=== PATIENT | female | born 1975 | race Caucasian/White ===

== ENCOUNTER 2017-02-01 08:10 | Emergency (ER) | payer OTHER ==
[2017-02-01 08:27] VITALS: BP 116/70
--- NOTE | 2017-02-01 09:03 | UC ---
Throat Pain/Nasal Shane HPI - HPI Summary HPI Summary: Day 7 of sinus congestion and frontal sinus pain Day 2 of sore throat--- concerned she may have been exposed to strep - History of Current Complaint Chief Complaint: UCGeneralIllness Stated Complaint: SORE THROAT Time Seen by Provider: 02/01/17 08:57 Hx Obtained From: Patient Hx Last Menstrual Period: Mirena IUD ?: No Onset/Duration: Sudden Onset, Lasting Days - 1 Severity: Mild Pain Intensity: 4 Pain Scale Used: 0-10 Numeric Cough: None Associated Signs & Symptoms: Positive: Negative - Allergies/Home Medications Allergies/Adverse Reactions: Allergies Allergy/AdvReac Type Severity Reaction Status Date / Time Diphenhydramine Allergy Intermediate restless Verified 02/01/17 08:23 [From Benadryl] legs Lactose Intolerance (GI) AdvReac Nausea And Verified 02/01/17 08:23 Vomiting seasonal Allergy Congestion Uncoded 02/01/17 08:23 Home Medications: Home Medications Cholecalciferol TAB* [Vitamin D TAB*] 2,000 units PO DAILY 02/01/17 [History Confirmed 02/01/17] PMH/Surg Hx/FS Hx/Imm Hx Previously Healthy: No Endocrine History: Other - anemia Other Endocrine History: anemia Psychological History: Depression - Surgical History Surgical History: Yes Surgery Procedure, Year, and Place: bariatric, c section, ear tubes, sinus - Family History Known Family History: Positive: None - Social History Occupation: Employed Full-time Lives: With Family Alcohol Use: Occasionally Substance Use Type: None Smoking Status (MU): Never Smoked Tobacco - Immunization History Most Recent Influenza Vaccination: Not the Season Hx Tetanus, Diphtheria Vaccination: No Vaccination Up to Date: No Review of Systems Constitutional: Chills, Fatigue Skin: Negative Eyes: Negative ENT: Sore Throat, Nasal Discharge, Sinus Congestion, Sinus Pain/Tenderness Respiratory: Negative Cardiovascular: Negative Gastrointestinal: Negative Genitourinary: Negative Motor: Negative Neurovascular: Negative Musculoskeletal: Negative Neurological: Negative Psychological: Negative Is Patient Immunocompromised?: No All Other Systems Reviewed And Are Negative: Yes Physical Exam Triage Information Reviewed: Yes Appearance: Well-Appearing, No Pain Distress, Well-Nourished Vital Signs: Initial Vital Signs Temp 98.1 F 02/01/17 08:22 Pulse 72 02/01/17 08:22 Resp 16 02/01/17 08:22 BP 116/70 02/01/17 08:22 Pulse Ox 100 02/01/17 08:22 Vital Signs Reviewed: Yes Eye Exam: Normal Eyes: Positive: Conjunctiva Clear ENT Exam: Normal ENT: Positive: Normal ENT inspection, Hearing grossly normal, Pharynx normal, TMs normal. Negative: Nasal congestion, Nasal drainage, Tonsillar swelling, Tonsillar exudate, Trismus, Muffled/hoarse voice Dental Exam: Normal Neck exam: Normal Neck: Positive: Supple, Nontender, No Lymphadenopathy Respiratory Exam: Normal Respiratory: Positive: Chest non-tender, Lungs clear, Normal breath sounds, No respiratory distress, No accessory muscle use Cardiovascular Exam: Normal Cardiovascular: Positive: RRR, No Murmur, Pulses Normal, Brisk Capillary Refill Musculoskeletal Exam: Normal Musculoskeletal: Positive: Strength Intact, ROM Intact Neurological Exam: Normal Neurological: Positive: Alert, Muscle Tone Normal Psychological Exam: Normal Skin Exam: Normal Diagnostics - Laboratory Diagnostic Studies Completed/Ordered: RST (-) Throat Pain/Nasal Course/Dx - Course Assessment/Plan: Try sudafed and flonase may add antibiodic if not improving in next 3-4 days follow with pcp - Differential Dx/Diagnosis Differential Diagnosis/HQI/PQRI: Otitis Media, Pharyngitis, Sinusitis, URI Provider Diagnoses: Acute rhinosinuisitis Discharge - Discharge Plan Condition: Stable Disposition: HOME Prescriptions: Amoxicillin/Clavulanate TAB* [Augmentin TAB 875*] 875 mg PO BID #20 tab Fluticasone NASAL SPRAY 50MCG* [Flonase NASAL SPRAY 50MCG*] 2 spray BOTH NARES DAILY #1 btl Patient Education Materials: Pseudoephedrine (By mouth), Sinusitis (ED), Nasal Rinse (ED), How to Use Nasal [place] (ED) Referrals: Becky Mullins MD [Primary Care Provider] - If Needed
== END 2017-02-01 09:16 | disposition home or self-care (01) ==
LOC: UCCORT 08:10
DX: J01.90 Acute sinusitis, unspecified (principal); F32.9 Major depressive disorder, single episode, unspecified
CPT/HCPCS: 87651; 99212; G0463

== ENCOUNTER 2020-04-03 11:05 | Inpatient (IN) ==
[2020-04-03] MEDS ORDERED: NS 0.9% 1000 ml BAG 1,000 ML IV ONE ×2 (11:43→16:08)
[2020-04-03 12:52] LABS: ABS Eosinophils 0.3 10^3/ul (0-0.6); ABS Lymphocytes 1.4 10^3/ul (1.0-4.8); ABS Monocytes 0.7 10^3/ul (0-0.8); ABS Neutrophils 6.3 10^3/ul (1.5-7.7); Eosinophil % 3.9 %; Hematocrit 38 % (35-47); Mean Corpuscular HGB Conc 34 g/dL (31-36); Mean Corpuscular Hemoglobin 31 pg (27-31); Mean Corpuscular Volume 92 fL (80-97); Mean Platelet Volume 7.9 fL (7.4-10.4); Platelet Count 307 10^3/uL (150-450); Red Blood Count 4.17 10^6 /uL (3.70-4.87); Red Cell Distribution Width 14 % (10-15); White Blood Count 8.8 10^3/uL (3.5-10.8)
[2020-04-03 13:12] LABS: Albumin 4.4 g/dL (3.2-5.2); Albumin/Globulin Ratio 1.2 (1-3); C Reactive Protein 25.92 mg/L (<8.01); Calcium 9.5 mg/dL (8.6-10.3); EGFR African American 101.1 (>60); EGFR Non-African American 83.6 (>60); Globulin 3.7 g/dL (2-4); Potassium 3.9 mmol/L (3.5-5.0); Total Bilirubin 0.7 mg/dL (0.2-1.0); Total Protein 8.1 g/dL (6.4-8.9)
[2020-04-03] MEDS ORDERED: Lidocaine 1% MPF 5 ML VIAL INJ ONE ×2 (13:38→14:18)
[2020-04-03 13:57] LABS: Erythrocyte Sed Rate 51 mm/Hr (0-19)
[2020-04-03] MEDS ORDERED: Morphine 4 MG/ML VIAL (1 ml) IV ONE ×2 (14:17→15:07)
[2020-04-03] MEDS ORDERED: ceFAZolin 1 GM ADVAN 1 GM in NS 0.9% 50 ML 50 ML IVPB ONE (14:17)
[2020-04-03] MEDS ORDERED: Ondansetron 4 mg VIAL 2 MG/ML 2 ml VIAL IV ONE ×2 (14:17→18:11)
[2020-04-03] MEDS ORDERED: fentaNYL 100 mcg/2 ml 50 MCG/ML VIAL IV SLOW PU ONE ×2 (16:07→17:08)
[2020-04-03] MEDS ORDERED: Midazolam 5 mg/5 ml VIAL 1 mg/ml 5 ml VIAL (5 mg) IV SLOW PU ONE ×2 (16:07→17:07)
[2020-04-03] MEDS ORDERED: fentaNYL 100 mcg/2 ml 50 MCG/ML VIAL ONE (16:47)
[2020-04-03] MEDS ORDERED: Midazolam 5 mg/5 ml VIAL 1 mg/ml 5 ml VIAL (5 mg) ONE (16:52)
[2020-04-03] MEDS ORDERED: NS 0.9% 1000 ml BAG 1,000 ML IV SCH (19:15)
[2020-04-03] MEDS ORDERED: ELETRIPTAN 20 MG PO PRN (19:37)
[2020-04-03] MEDS: oxyCODONE/Acetamin 5/325 mg TAB PO PRN ×2 (19:39→23:58)
[2020-04-03] MEDS: Ondansetron 4 mg VIAL 2 MG/ML 2 ml VIAL IV PRN (21:25)
[2020-04-03] MEDS: Cholecalciferol (VIT D3) 1,000 unit TAB PO SCH (22:24)
[2020-04-03] MEDS: ceFAZolin 1 GM ADVAN 1 GM in NS 0.9% 50 ML 50 ML IVPB SCH (22:24)
[2020-04-04] MEDS: Ondansetron 4 mg VIAL 2 MG/ML 2 ml VIAL IV PRN ×4 (01:35→15:39)
[2020-04-04] MEDS: ceFAZolin 1 GM ADVAN 1 GM in NS 0.9% 50 ML 50 ML IVPB SCH ×3 (05:28→22:20)
[2020-04-04] MEDS: oxyCODONE/Acetamin 5/325 mg TAB PO PRN ×3 (05:29→15:40)
[2020-04-04 06:56] LABS: ABS Eosinophils 0.2 10^3/ul (0-0.6); ABS Lymphocytes 1.1 10^3/ul (1.0-4.8); ABS Monocytes 0.5 10^3/ul (0-0.8); ABS Neutrophils 3.7 10^3/ul (1.5-7.7); Eosinophil % 3.3 %; Hematocrit 31 % (35-47); Hemoglobin 10.6 g/dL (12.0-16.0); Lymphocyte % 19.5 %; Mean Corpuscular HGB Conc 34 g/dL (31-36); Mean Corpuscular Hemoglobin 31 pg (27-31); Mean Corpuscular Volume 93 fL (80-97); Mean Platelet Volume 7.6 fL (7.4-10.4); Platelet Count 243 10^3/uL (150-450); Red Cell Distribution Width 13 % (10-15); White Blood Count 5.4 10^3/uL (3.5-10.8)
[2020-04-04 07:15] LABS: Albumin 3.3 g/dL (3.2-5.2); Albumin/Globulin Ratio 1.2 (1-3); BUN/Creatinine Ratio 14.8 (8-20); C Reactive Protein 22.07 mg/L (<8.01); Calcium 8.3 mg/dL (8.6-10.3); EGFR African American 127.8 (>60); EGFR Non-African American 105.6 (>60); Globulin 2.8 g/dL (2-4); Potassium 4.2 mmol/L (3.5-5.0); Total Bilirubin 0.5 mg/dL (0.2-1.0); Total Protein 6.1 g/dL (6.4-8.9)
[2020-04-04] MEDS: Cholecalciferol (VIT D3) 1,000 unit TAB PO SCH (20:07)
[2020-04-05] MEDS: ceFAZolin 1 GM ADVAN 1 GM in NS 0.9% 50 ML 50 ML IVPB SCH (06:01)
[2020-04-05 07:52] VITALS: BP 104/48
[2020-04-05 08:51] LABS: ABS Basophils 0.1 10^3/ul (0-0.2); ABS Eosinophils 0.2 10^3/ul (0-0.6); ABS Lymphocytes 1.2 10^3/ul (1.0-4.8); ABS Monocytes 0.5 10^3/ul (0-0.8); ABS Neutrophils 4.6 10^3/ul (1.5-7.7); Eosinophil % 3.4 %; Hematocrit 33 % (35-47); Hemoglobin 11.1 g/dL (12.0-16.0); Lymphocyte % 18.1 %; Mean Corpuscular HGB Conc 34 g/dL (31-36); Mean Corpuscular Hemoglobin 31 pg (27-31); Mean Corpuscular Volume 92 fL (80-97); Mean Platelet Volume 7.4 fL (7.4-10.4); Platelet Count 261 10^3/uL (150-450); Red Blood Count 3.57 10^6 /uL (3.70-4.87); Red Cell Distribution Width 13 % (10-15); White Blood Count 6.5 10^3/uL (3.5-10.8)
== END 2020-04-05 11:40 | disposition home or self-care (01) | DRG 581 ==
LOC: ED 11:05 → SSU 11:05
PROVIDERS: ADMIT Internal Medicine; ATTEND Internal Medicine

== ENCOUNTER 2023-08-27 05:33 | Inpatient (IN) ==
[~2023-08-27 05:33] MED LIST: Naloxone 0.4 mg VIAL 0.4 mg/ml 1 ml VIAL IV PRN
[2023-08-27] MEDS ORDERED: Dexamethasone IV 4 MG/ML VIAL 1 ml VIAL ONE (06:06)
[2023-08-27] MEDS ORDERED: Heparin 5000 UNITS/ML 1 mL VIAL ONE (06:06)
[2023-08-27] MEDS ORDERED: Scopolamine 1 mg/72hr PATCH ONE (06:06)
[2023-08-27] MEDS ORDERED: CEFAZOLIN ONE (06:07)
[2023-08-27] MEDS ORDERED: Ondansetron 4 mg VIAL 2 MG/ML 2 ml VIAL ONE ×2 (06:07→15:54)
[2023-08-27 06:13] LABS: Rapid COVID-19 Molecular Undetected (Undetected)
[2023-08-27] MEDS ORDERED: Povidone Iodine 5% OPTH 30 ML BTL ONE (07:01)
[2023-08-27] MEDS ORDERED: Gentamicin ADULT 40 MG/ML VIAL (2 ML VIAL = 80 MG) ONE (07:01)
[2023-08-27] MEDS ORDERED: ceFAZolin VIAL VIAL ONE (07:01)
[2023-08-27] MEDS ORDERED: Bupivacaine 0.25% SDV 30 ML ONE ×2 (07:01→14:55)
[2023-08-27] MEDS ORDERED: Lidocaine 2% PF 5 ML VIAL ONE (07:16)
[2023-08-27] MEDS ORDERED: Propofol 10 MG/ML 20 ML BTL ONE (07:17)
[2023-08-27] MEDS ORDERED: fentaNYL 100 mcg/2 ml 50 MCG/ML VIAL ONE ×2 (07:17→15:57)
[2023-08-27] MEDS ORDERED: Rocuronium 50 mg VIAL 10 mg/ml 5 ml VIAL (50 mg) ONE ×4 (07:18→13:06)
[2023-08-27] MEDS ORDERED: Midazolam 2 mg/2 ml VIAL 1 mg/ml 2 ml VIAL (2 mg) ONE (07:20)
[2023-08-27] MEDS ORDERED: ISOSULFAN BLUE 1% 5 ML VIAL 10 MG/ML SUBCUT ONE (07:25)
[2023-08-27] MEDS ORDERED: HYDROmorphone 0.5 MG/0.5 ML SYRINGE ONE ×4 (08:14→14:15)
[2023-08-27] MEDS: fentaNYL 100 mcg/2 ml 50 MCG/ML VIAL IV PRN (15:58)
[2023-08-27] MEDS ORDERED: Ondansetron 4 mg VIAL 2 MG/ML 2 ml VIAL IV PRN (16:08)
[2023-08-27] MEDS ORDERED: Naloxone 0.4 mg VIAL 0.4 mg/ml 1 ml VIAL IV PRN (16:08)
[2023-08-27] MEDS ORDERED: fentaNYL 100 mcg/2 ml 50 MCG/ML VIAL IV PRN (16:08)
[2023-08-27] MEDS ORDERED: Metoclopramide 5 MG/ML VIAL (10 mg) ONE (16:17)
[2023-08-27] MEDS: Metoclopramide 5 MG/ML VIAL (10 mg) IV PRN (16:18)
[2023-08-27] MEDS ORDERED: Prochlorperazine 5 mg/ml 2 ml VIAL (10 mg) ONE (16:59)
[2023-08-27] MEDS: Prochlorperazine 5 mg/ml 2 ml VIAL (10 mg) IV PRN (17:06)
[2023-08-27] MEDS: Lactated Ringers 1000 ml BAG 1,000 ML IV SCH (19:14)
[2023-08-27] MEDS: Buffered Lidocaine 1% SYRIN 1 ml INTRADERM ONE (19:18)
[2023-08-27] MEDS: Benzocaine/Menthol LOZ PO PRN (19:44)
[2023-08-27] MEDS: Scopolamine 1 mg/72hr PATCH TRANSDERM SCH (19:44)
[2023-08-27] MEDS: HYDROcodone/ACETAMIN 5/325 mg TAB PO PRN (19:48)
[2023-08-27] MEDS: ceFAZolin VIAL 2 GM in NS 0.9% 100 ml BAG 100 ML IVPB SCH (21:26)
[2023-08-27] MEDS: Heparin 5000 UNITS/ML 1 mL VIAL SUBCUT SCH (22:57)
[2023-08-28] MEDS: Morphine 2 MG/ML SYRINGE IV PRN (01:24)
[2023-08-28 06:21] VITALS: BP 95/52
[2023-08-28] MEDS: MESALAMINE 1.2 GM PO SCH (07:46)
== END 2023-08-28 09:52 | disposition home or self-care (01) | DRG 580 ==
LOC: AA 05:33 → SSU 18:36
PROVIDERS: ADMIT Plastic Surgery; ATTEND Plastic Surgery